=== PATIENT | female | born 1940 | race Hispanic/Latino ===

== ENCOUNTER 2017-04-22 23:23 | Emergency (ER) | payer MEDICARE ==
[~2017-04-22] VITALS: Ht 157.5 cm; Wt 44.5 kg
[2017-04-22 23:25] VITALS: BP 158/75; PULSE 67; RESP 22; O2SAT 98
--- NOTE | 2017-04-22 23:32 | ED.REPORT ---
HPI-General Illness Date of Service Apr 22, 2017 ED Provider: Dr. Ramirez 77 y/o female with a hx of asthma presents to the ED complaining of wheezing, just prior to arrival. The pt had an asthma attack at [facility] and was brought to the ED because she was out of ProAir. She also complains of cough with white sputum for the last 5 days and intermittent discomfort in the chest with deep breathing. She denies fever, vomiting, chest pain, abdominal pain and lower extremity edema. Nursing Notes Stated Complaint: WHEEZING, CHEST PAIN Chief Complaint: Respiratory Distress Nursing Notes Reviewed: Yes Allergies: Coded Allergies: No Known Allergies (Unverified , 04/22/17) Scheduled Beclomethasone Dipropionate (Qvar) 8.7 Gm Aer.w.adap 1 PUFF INHALATION BID Prednisone (PredniSONE) 20 Mg Tablet 60 MG PO DAILY General Time Seen by MD: 23:31 Chief Complaint Other (wheezing) Hx Obtained From: Patient, Daughter Arrived By: Walk-in Sudden in Onset?: Yes Onset Occurred: Just prior to arrival Context of Onset: Ran out of medication Symptom Duration: Since onset Severity: Current: No pain currently Severity: Maximum: No pain Recent Healthcare: No recent doctor visit Similar Sx Previous: Yes Past Medical History Past Medical History Reports: Asthma Past Surgical History Reports: Hysterectomy Smoking History Never Smoker, Unknown if Ever Smoker Social History Other Social History: Good social support Ambulatory Status Independent Review of Systems Reports: chest discomfort with breathing Full Review of Systems Constitutional: Denies: Fever Respiratory: Reports: Prod cough, white, Wheezing Cardiovascular: Denies: Chest pain, Edema GI: Denies: Abdominal pain, Vomiting Complete sys rev & neg: except as marked. Physical Exam Vital Signs Vital Signs Date Time Temp Pulse Resp B/P Pulse Ox O2 Delivery O2 Flow Rate FiO2 04/23/17 01:13 99 22 98 Room Air 04/22/17 23:58 65 18 97 Room Air 04/22/17 23:25 36.5 67 22 158/75 98 Room Air Initial VS: Reviewed Head / Eyes: Atraumatic, Normocephalic Abdomen / GI: Soft, Non-tender, No guarding, No rebound Skin: Warm, Dry, No cyanosis Neurologic: Alert, Oriented, Nonfocal General/Constitutional: Awake, Alert, Cooperative Neck: Atraumatic, Supple, Full range of motion, No adenopathy Respiratory / Chest: Atraumatic, Breath sounds = bilat, No rales, No rhonchi Resp Distress / Stridor: Positive: Resp distress mild Wheezing / Retractions: Positive: Wheeze insp/exp diffuse Cardiovascular: Heart rate NL, Regular rhythm, Heart sounds NL, No gallop, No murmurs, No rubs Lower Extremity / Pelvis / MS: Atraumatic, Full range of motion, Neurologic intact Lower extremities without edema and chords. Interpretation & Diagnostics X-Ray Chest Interpretation Chest Xray Interpretation: Mild increase in interstitial marking but no acute findings. View: Portable Interpretation / Wet Read by: Wet read ED physician Re-Eval/Medical Decision Med Decision/Clinical Course 77-year-old with known asthma presents with wheezing after running out of her pro-air inhaler. She said it actually lead up to this with some increased wheezing and cough. No ongoing steroids. X-rays negative for acute infiltrate and she is improved after treatment here. Home with a brief steroid course, renewal of her albuterol, and discharged in stable and improved condition Time of Eval: 00:41 Re-Evaluation/Progress Note: Rechecked pt. She feels better. Discussed imaging results, diagnosis and plan to discharge. Pt understands and agrees with the plan. F/U instructions and RTER warning given. All questions addressed. Counseled Regarding: Diagnosis, Need for follow-up, When/why to return to ED Discharge & Departure Primary Impression: Asthma Asthma severity: moderate persistent Asthma complication type: with acute exacerbation Qualified Code: J45.41 - Moderate persistent asthma with (acute) exacerbation Disposition: Home Discharge Condition All VS Reviewed: Yes Condition: Stable Patient Instructions: Asthma (ED), Moderate and Severe Persistent Asthma (ED) Additional Instructions: Resume albuterol two puffs with spacer every four hours as needed. Begin prednisone three tablets daily for six days. On the Last day of prednisone, begin Qvar one puff twice daily, with spacer. Follow-up with your doctor in the office. Do not wear perfume, especially when you are feeling tight. It is essential that you do not let yourself run out of her albuterol. Notify your doctor and be sure that it is renewed before you get close to empty Return if any immediate issues while you are here in the area. Reanudar albuterol dos puffs con espaciador cada cuatro horas segn sea necesario. Comience la prednisona maggie comprimidos diarios carli seis owens. En el ltimo da de la prednisona, comience Qvar eliecer inhalacin dos veces al da , con espaciador. Fermín un seguimiento con mondragon mdico en la oficina. No use perfume, especialmente cuando se siente apretado. Es esencial que no te dejes correr fuera de mondragon albuterol. Notifique a mondragon mdico y asegrese de que se renueve antes de acercarse a vaco Regrese si hay problemas inmediatos mientras est aqu en esta esha. Referrals: [facility] Scribe Attestation Portions of this note were transcribed by Katie Stewart. I, , personally performed the history, physical exam and medical decision- making;I reviewed and confirmed the accuracy of the information in the transcribed note. Signed by Davina Ortiz. 04/23/17 00:42 Hilario Ramirez MD Apr 22, 2017 23:32 Katie Stewart Apr 22, 2017 23:37
[2017-04-22] MEDS ORDERED: _Proair 200 Puff/8.5 GM Inhaler INHALATION PRN (23:40)
[2017-04-22] MEDS ORDERED: Dexamethasone 10 mg/mL Inj IVPUSH ONE (23:40)
[2017-04-22] MEDS ORDERED: Albuterol 2.5 mg/3 mL Inhalation Solution NEB ONE (23:40)
[2017-04-22] MEDS ORDERED: Albuterol-Ipratropium 3 mL Inhalation Solution NEB ONE (23:40)
[2017-04-22 23:58] VITALS: PULSE 65; RESP 18; O2SAT 97
[2017-04-23] MEDS ORDERED: PRE20 PO (00:33)
[2017-04-23] MEDS ORDERED: BECL8.7A5 INHALATION (00:33)
[2017-04-23 01:13] VITALS: PULSE 99; RESP 22; O2SAT 98
--- NOTE | 2017-04-23 09:56 | DRSVH ---
PROCEDURE: X-RAY CHEST, TWO VIEWS ([id number]) INDICATIONS: asthma attack TECHNIQUE: 2 views of the chest were acquired. COMPARISON: None. FINDINGS: Surgical changes and devices: None. Lungs and pleura: No pleural effusions or pneumothorax. There is elevation of the right hemidiaphra gm laterally in the right base which may reflect a small diaphragmatic hernia. There is mild associa selena linear atelectasis or scarring. There is also mild apical scarring noted. No acute consolidatio n. Mediastinum: Mediastinal contours are normal. Heart size is normal. Bones and chest wall: There are severe anterior compression fractures of indeterminate acuity involv ing 2 vertebral bodies at the thoracolumbar junction with an associated mild kyphosis. Soft tissues appear unremarkable. IMPRESSION: 1. No definite acute cardiopulmonary disease. 2. Elevation of the right hemidiaphragm laterally suggestive of a small diaphragmatic hernia. 3. Severe anterior compression fractures at the thoracolumbar junction of indeterminate acuity. Dictated by: Jhonathan Gonzalez M.D. on 04/23/2017 at 9:47 Approved by: Jhonathan Gonzalez M.D. on 04/23/2017 at 9:49
== END 2017-04-23 01:14 | disposition home or self-care (01) ==
LOC: SED 23:23
DX: J45.41 Moderate persistent asthma with (acute) exacerbation (principal)
CPT/HCPCS: 71020; 94640; 94664; 96374; 99284; J1100; J7613; J7620

== ENCOUNTER 2017-06-29 15:18 | Emergency (ER) | payer MEDICARE ==
[~2017-06-29] VITALS: Ht 157.5 cm; Wt 43.2 kg
[~2017-06-29 15:18] MED LIST: BECL8.7A5 INHALATION; PRE20 PO
[2017-06-29 15:35] VITALS: BP 153/66; PULSE 82; RESP 18; O2SAT 98
== END 2017-06-29 16:03 | disposition left against medical advice (07) ==
LOC: SED 15:50
DX: M54.2 Cervicalgia (principal); W10.9XXA Fall (on) (from) unspecified stairs and steps, initial encounter; Z53.21 Procedure and treatment not carried out due to patient leaving prior to being seen by health care provider